=== PATIENT | male | born 1985 | race Caucasian/White ===

== ENCOUNTER 2021-07-13 08:45 | Emergency (ER) | payer BC ==
[~2021-07-13] VITALS: Ht 175.3 cm; Wt 99.8 kg
[2021-07-13 08:51] VITALS: BP_SYST 121
--- NOTE | 2021-07-13 08:55 | NUR ---
bib self c/o left knee pain x 1 day non traumatic site without swelling. pt states felt a pop this am. triage complete pt in room 5. md at bedside
[2021-07-13 09:51] VITALS: BP_SYST 132
--- NOTE | 2021-07-13 09:54 | NUR ---
Patient given written and verbal discharge instructions and verbalizes understanding. WU leos MD discussed with patient the results and treatment provided. Patient in stable condition. ID arm band removed. Patient educated on pain management and to follow up with PMD. Pain Scale 9. Opportunity for questions provided and answered. Medication side effect fact sheet provided.
== END 2021-07-13 09:54 | disposition home or self-care (01) ==
LOC: SED 08:45
DX: S83.92XA Sprain of unspecified site of left knee, initial encounter (principal); X50.9XXA Other and unspecified overexertion or strenuous movements or postures, initial encounter; Y93.89 Activity, other specified; Y92.89 Other specified places as the place of occurrence of the external cause; Y99.8 Other external cause status
CPT/HCPCS: 73560-TC; 99283

== ENCOUNTER 2021-10-23 22:15 | Emergency (ER) | payer BC ==
[~2021-10-23] VITALS: Ht 175.3 cm; Wt 88.5 kg
[2021-10-23 22:26] VITALS: BP_SYST 147
--- NOTE | 2021-10-23 22:35 | NUR ---
Patient to ER bed 08 to gown for evaluation. Side rails up.
--- NOTE | 2021-10-23 22:36 | NUR ---
in to see patient
--- NOTE | 2021-10-23 22:40 | NUR ---
Pt brought by self, A&Ox4, pt presents to ER with R upper abdominal pain x 2 days, skin pink and warm, cap refill <3, VSS, respirations even and unlabored, cap refill <3.
[2021-10-23] MEDS ORDERED: MORPHINE 4 MG INJ. 4 MG/ML VIAL IVP ONE (23:00)
[2021-10-23] MEDS ORDERED: NACL 0.9% 1,000 ML IV ONE (23:00)
[2021-10-23] MEDS ORDERED: PROCHLORPERAZINE EDISYLATE 10 MG/2 ML VIAL IVP ONE (23:00)
--- NOTE | 2021-10-23 23:12 | NUR ---
# 20 gauge angiocath placed to lac. Use of asceptic technique. Opsite placed over site. Blood return noted. Blood for lab drawn from site. Flushed with 10 cc of normal saline. No evidence of infiltration noted. Patient tolerated well.
--- NOTE | 2021-10-23 23:15 | NUR ---
urine sample sent to lab
[2021-10-23 23:45] LABS: BILIRUBIN,URINE NEGATIVE (NEGATIVE); BLOOD, URINE NEGATIVE (NEGATIVE); CLARITY/URINE CLEAR (CLEAR); COLOR,URINE YELLOW (YELLOW); GLUCOSE,URINE NEGATIVE (NEGATIVE); KETONES,URINE NEGATIVE (NEGATIVE); LEUKOCYTE ESTERASE ,URINE NEGATIVE (NEGATIVE); NITRITE, URINE NEGATIVE (NEGATIVE); PROTEIN URINE TRACE (NEGATIVE); UROBILINOGEN,URINE 0.2 (0.2-1.0)
[2021-10-24 00:44] LABS: CALCIUM 9.2 mg/dL (8.4-11.0); CREATININE 0.95 mg/dL (0.55-1.30); POTASSIUM 3.7 mmol/L (3.5-5.1)
--- NOTE | 2021-10-24 00:44 | NUR ---
Patient states that he has pressure on his right abdomen.
[2021-10-24 00:49] LABS: ALBUMIN 3.8 g/dL (3.4-4.8); TOTAL BILIRUBIN 0.4 mg/dL (0.0-1.0)
[2021-10-24 00:59] LABS: BASOPHILS # (AUTO) 0.1 K/uL (0.0-0.2); BASOPHILS % (AUTO) 1.1 % (0.0-2.0); EOSINOPHILS # (AUTO) 0.3 K/uL (0.0-0.4); EOSINOPHILS % (AUTO) 2.9 % (0.0-4.0); HEMOGLOBIN 14.8 g/dL (14.0-18.0); LYMPHOCYTES # (AUTO) 3.5 K/uL (1.0-5.5); MEAN CORPUSCULAR HEMOGLOBIN 34 pg (27-31); MEAN CORPUSCULAR HGB CONC 35 % (32-36); MEAN CORPUSCULAR VOLUME 96 fL (79.0-98.0); MONOCYTES # (AUTO) 0.8 K/uL (0.0-1.0); MONOCYTES % (AUTO) 8.2 % (1.7-9.3); NEUTROPHILS # (AUTO) 4.8 K/uL (1.8-7.7); NEUTROPHILS % (AUTO) 50.8 % (40.0-70.0); PLATELET COUNT (AUTO) 210 K/uL (130-430); RED BLOOD CELL COUNT(AUTO) 4.36 MIL/uL (4.2-6.2); RED CELL DISTRIBUTION WIDTH 13.8 % (9.0-15.0); WHITE BLOOD COUNT (AUTO) 9.5 K/uL (4.8-10.8)
[2021-10-24] MEDS ORDERED: MAGNESIUM CITRATE 300 ML ORAL SOLUTION PO ONE (02:00)
[2021-10-24] MEDS ORDERED: DOCU-144 PO (02:03)
[2021-10-24 02:09] VITALS: BP_SYST 147
--- NOTE | 2021-10-24 02:10 | NUR ---
Patient given written and verbal discharge instructions and verbalizes understanding. ER MD discussed with patient the results and treatment provided. Patient in stable condition. ID arm band removed. Rx of [Colace] given. Patient educated on pain management and to follow up with PMD. Pain Scale [2/10]. Opportunity for questions provided and answered. Medication side effect fact sheet provided.
[2021-10-25] MEDS ORDERED: IBUP-1971 PO (08:55)
[2021-10-25] MEDS ORDERED: TRAM50TA2 PO (08:55)
== END 2021-10-24 02:10 | disposition home or self-care (01) ==
LOC: SED 22:15
DX: K59.00 Constipation, unspecified (principal); R10.11 Right upper quadrant pain; Z79.899 Other long term (current) drug therapy
CPT/HCPCS: 36415; 74021; 80053; 81003; 83690; 85025; 96361; 96374; 96375; 99284; J0780; J2270; J7030

== ENCOUNTER 2021-10-25 07:58 | Emergency (ER) | payer BC ==
[~2021-10-25] VITALS: Ht 175.3 cm; Wt 88.5 kg
[~2021-10-25 07:58] MED LIST: DOCU-144 PO
[2021-10-25 08:12] VITALS: BP_SYST 140
--- NOTE | 2021-10-25 08:15 | NUR ---
Patient to ER bed 7 for evaluation. Side rails up. Report given to Anneliese JOSUE.
--- NOTE | 2021-10-25 08:15 | NUR ---
ER Dr. Boothe at bedside examining patient.
--- NOTE | 2021-10-25 08:20 | NUR ---
Pt presents to the ER BIB self. CC Right ankle pain. Slight swelling no echymosis noted. Pt states was walking around real when an acute sharp pain to the right ankle occured. Pt denies trauma or recollection of event that would cause injuruy. Pt is aaox4 skin intact resting with feet elevated in beds lowest position.
--- NOTE | 2021-10-25 08:45 | NUR ---
Pt with Dr Boothe BS for MSE.
[2021-10-25] MEDS ORDERED: TRAM50TA2 PO (08:55)
[2021-10-25] MEDS ORDERED: IBUP-1971 PO (08:55)
[2021-10-25] MEDS ORDERED: HYDROcodone/ACETAMIN 10-325 MG TAB PO ONE (09:00)
[2021-10-25] MEDS ORDERED: IBUPROFEN 800 MG TABLET PO ONE (09:00)
--- NOTE | 2021-10-25 09:02 | NUR ---
Pt given Ibuprofen and [place] for pain and inflammation, offered food ate 100% applesauce. Pt is anxious sitting with legs to floor, encouraged to elevate and rest in bed.
--- NOTE | 2021-10-25 09:15 | NUR ---
Patient given written and verbal discharge instructions and verbalizes understanding. ER MD discussed with patient the results and treatment provided. Patient in stable condition. ID arm band removed. Rx of Ibuprofen and Ultram given. Patient educated on pain management and to follow up with PMD. Opportunity for questions provided and answered. Medication side effect fact sheet provided.
[2021-10-25 09:23] VITALS: BP_SYST 156
== END 2021-10-25 09:15 | disposition home or self-care (01) ==
LOC: SED 07:58
DX: S96.911A Strain of unspecified muscle and tendon at ankle and foot level, right foot, initial encounter (principal); Z79.899 Other long term (current) drug therapy; W18.30XA Fall on same level, unspecified, initial encounter; Y93.89 Activity, other specified; Y92.89 Other specified places as the place of occurrence of the external cause; Y99.8 Other external cause status
CPT/HCPCS: 99284

== ENCOUNTER 2023-03-14 10:11 | Emergency (ER) | payer BC ==
[~2023-03-14] VITALS: Ht 177.8 cm; Wt 95.3 kg
[~2023-03-14 10:11] MED LIST changes: +IBUP-1971 PO; +TRAM50TA2 PO
[2023-03-14 10:29] VITALS: BP_SYST 117; PULSE 73; RESP 18; TEMP 98; O2SAT 99
[2023-03-14] MEDS ORDERED: ACETAMINOPHEN 500 MG TABLET PO ONE (10:45)
[2023-03-14] MEDS ORDERED: IBUPROFEN 400 MG TABLET PO ONE (10:45)
[2023-03-14 12:02] VITALS: BP_SYST 124; PULSE 75; RESP 18; TEMP 98.1; O2SAT 99
== END 2023-03-14 11:58 | disposition home or self-care (01) ==
LOC: SED 10:11
DX: S62.617A Displaced fracture of proximal phalanx of left little finger, initial encounter for closed fracture (principal); Z79.899 Other long term (current) drug therapy; W23.0XXA Caught, crushed, jammed, or pinched between moving objects, initial encounter; Y93.89 Activity, other specified; Y92.89 Other specified places as the place of occurrence of the external cause; Y99.8 Other external cause status
CPT/HCPCS: 99283